=== PATIENT | female | born 1940 | race Caucasian/White ===

== ENCOUNTER 2021-05-22 23:18 | Emergency (ER) | payer MEDICARE, OTHER ==
[~2021-05-22] VITALS: Ht 157.5 cm; Wt 78.5 kg
[2021-05-23 02:04] VITALS: BP 159/63; PULSE 84; TEMP 98.3
== END 2021-05-23 02:04 | disposition home or self-care (01) ==
LOC: COL.ER 23:18
DX: S42.302A Unspecified fracture of shaft of humerus, left arm, initial encounter for closed fracture (principal); X58.XXXA Exposure to other specified factors, initial encounter
CPT/HCPCS: J2704; J7030